=== PATIENT | female | born 1985 | race Caucasian/White ===

== ENCOUNTER 2018-06-28 14:48 | Observation (INO) | payer SELFPAY ==
[2018-06-28 16:01] LABS: BASO # 0.1 K/uL (0.0-0.2); BASO % 0.7 % (0.0-2.0); EOS # 0.2 K/uL (0.0-0.7); EOS % 1.8 % (0.0-4.0); LYMPH # 2.7 K/uL (1.0-4.3); LYMPH % 29.3 % (20.0-40.0); MEAN CELL VOLUME 83.1 fL (81.0-99.0); MEAN CORPUSCULAR HGB CONC 34.9 g/dL (33.0-37.0); MEAN PLATELET VOLUME 10.2 fL (7.2-11.7); MONO # 0.5 K/uL (0.0-0.8); MONO % 5.1 % (0.0-10.0); NEUT # 5.8 K/uL (1.8-7.0); NEUT % 63.1 % (50.0-75.0); NRBC % 0.1 % (0.0-2.0); RBC 4.83 Mil/uL (3.80-5.20); RED CELL DISTRIBUTION WIDTH 14.2 % (11.5-14.5); WHITE BLOOD COUNT 9.2 K/uL (4.8-10.8)
[2018-06-28 16:19] LABS: BLOOD UREA NITROGEN 12 mg/dL (7-17); CALCIUM 9.3 mg/dl (8.6-10.4); GFR NON-AFRICAN AMERICAN > 60
[2018-06-28 16:23] LABS: ALB/GLOB RATIO 1.4 (1.0-2.1); ALBUMIN 4.9 g/dL (3.5-5.0); ALT/SGPT 19 U/L (9-52); AST/SGOT 55 U/L (14-36)
--- NOTE | 2018-06-28 16:31 | RAD ---
PROCEDURE: Right Hand Radiographs. HISTORY: swelling, cellulitis middle finger COMPARISON: None. FINDINGS: BONES: Normal. No fracture. JOINTS: Normal. No osteoarthritic changes. SOFT TISSUES: Soft tissue swelling middle digit. No visulaized radiopaque/visualized foreign body. OTHER FINDINGS: None. IMPRESSION: Soft tissue swelling without acute articular or osseous abnormality.
--- NOTE | 2018-06-28 16:38 | C.PDOC ---
History Of Present Illness 33 year old female presents to the ED for evaluation of a bump over the 3rd digit on her right hand for the last few days. Patient states the bump started small, unsure how or why the bump developed, she began to pick and scratch the bump resulting in the bump to become filled with puss and swollen. Denies fever, nausea, vomiting, numbness, tingling, and any other associated symptoms. <Taty Galdamez - Last Filed: 06/28/18 17:29> History Per: Patient History/Exam Limitations: no limitations Onset/Duration Of Symptoms: Days Current Symptoms Are (Timing): Still Present <Taty Galdamez - Last Filed: 06/28/18 17:29> <Gee Barker - Last Filed: 06/29/18 23:13> Time Seen by Provider: 06/28/18 15:10 Chief Complaint (Nursing): Finger,Hand,&Wrist Past Medical History Vital Signs: Last Vital Signs Temp 98.3 F 06/28/18 14:52 Pulse 77 06/28/18 14:52 Resp 19 06/28/18 14:52 BP 110/77 06/28/18 14:52 Pulse Ox 99 06/28/18 14:52 - Medical History PMH: Arthritis, Asthma (childhood), Back Problems (chronic back pain), Gastritis, Hypercholesterolemia, Migraine, Seizures Denies: Diabetes, Hepatitis, HIV, HTN, Chronic Kidney Disease, Sexually Transmitted Disease Surgical History: Cholecystectomy - [facility] Procedures GROUP PSYCHOTHERAPY (11/21/16) INDIVIDUAL PSYCHOTHERAPY, SUPPORTIVE (11/21/16) MEDICATION MANAGEMENT (11/21/16) OP RED-INT FIX TIB/FIBUL (12/13/14) Family History: States: Unknown Family Hx - Social History Hx Tobacco Use: No Hx Alcohol Use: No Hx Substance Use: No - Immunization History Hx Tetanus Toxoid Vaccination: No Hx Influenza Vaccination: No Hx Pneumococcal Vaccination: No <Taty Galdamez - Last Filed: 06/28/18 17:29> Vital Signs: Last Vital Signs Temp 98.0 F 06/29/18 16:00 Pulse 81 06/29/18 16:00 Resp 20 06/29/18 16:00 BP 113/71 06/29/18 16:00 Pulse Ox 97 06/29/18 19:20 - [facility] Procedures GROUP PSYCHOTHERAPY (11/21/16) INDIVIDUAL PSYCHOTHERAPY, SUPPORTIVE (11/21/16) MEDICATION MANAGEMENT (11/21/16) OP RED-INT FIX TIB/FIBUL (12/13/14) Family History: States: No Known Family Hx <Gee Barker E - Last Filed: 06/29/18 23:13> Review Of Systems Except As Marked, All Systems Reviewed And Found Negative. Constitutional: Negative for: Fever, Chills Gastrointestinal: Negative for: Nausea, Vomiting Musculoskeletal: Positive for: Other (bump over the 3rd digit on the right hand.) Neurological: Negative for: Weakness, Numbness, Incoordination <Taty Galdamez - Last Filed: 06/28/18 17:29> Physical Exam - Physical Exam Appears: Well, Non-toxic Skin: Warm, Dry Head: Normacephalic Eye(s): bilateral: PERRL Oral Mucosa: Moist Chest: Symmetrical, No Deformity Cardiovascular: Rhythm Regular, No Murmur Respiratory: Normal Breath Sounds, No Rales, No Rhonchi, No Wheezing Extremity: Normal ROM (x4), No Deformity, Other (Right hand: Multiple old self- inflicted healed lacerations on the right hand, 3rd right hand scab and swelling, decreased ability to flex, red streaks on dorsal hand due to swelling.) Pulses: Left Radial: Normal, Right Radial: Normal Neurological/Psych: Oriented x3, Normal Speech, Normal Motor, Normal Sensation, Normal Reflexes Gait: Steady <Taty Galdamez - Last Filed: 06/28/18 17:29> ED Course And Treatment - Laboratory Results Result Diagrams: 06/28/18 15:42 06/28/18 15:42 O2 Sat by Pulse Oximetry: 99 (RA) Pulse Ox Interpretation: Normal - Other Rad RT Hand X-ray X-Ray: Viewed By Me, Read By Radiologist Interpretation: FINDINGS: BONES: Normal. No fracture. JOINTS: Normal. No osteoarthritic changes. SOFT TISSUES: Soft tissue swelling middle digit. No visulaized radiopaque/visualized foreign body. OTHER FINDINGS: None. IMPRESSION: Soft tissue swelling without acute articular or osseous abnormality. Progress Note: Blood sent. Blood culture sent. Urinalysis and Urine HCG sent. Sent right hand x-ray. Given Tylenol. 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 - Scribe Statement The provider has reviewed the documentation as recorded by the Scribe (Alda Murphy) All medical record entries made by the Scribe were at my direction and personally dictated by me. I have reviewed the chart and agree that the record accurately reflects my personal performance of the history, physical exam, medical decision making, and the department course for this patient. I have also personally directed, reviewed, and agree with the discharge instructions and disposition. <Taty Galdamez - Last Filed: 06/28/18 17:29>
[2018-06-28] MEDS ORDERED: Piperacillin/Tazobact 3.375 GM in Sodium Chloride 100 ML IVPB STA (16:56)
[2018-06-28] MEDS ORDERED: Piperacillin/Tazobact 3.375 gm 100 ML IVPB ONE (17:05)
[2018-06-28] MEDS ORDERED: Vancomycin 1 GM 1 GM/250 ML BAG IVPB ONE (17:54)
--- NOTE | 2018-06-28 18:27 | CP.PCM.CON ---
History of Present Illness - History of Present Illness History of Present Illness: Plastic Surgery Consult: Plastic Surgery Patient is a 33F with PMHx of epilepsy, asthma, and psoriasis came in presenting with a R 3rd digit cellulitis and abscess. She reports the problem started 4 days ago when a "pimple" looking lesion developed. She developed weakness, swelling, and itchiness. She says any kind of movement makes her hand hurt. She describes it as a constant 10/10 pain that is stabbing and tingling. The pain extends up to the dorsal aspect of her R forearm. Pt tried to pop it yesterday with a needle but it made her pain even worse. She reports a bloody and pus- filled discharge. She denies owning pets, recent trauma, gardening, nor travel. She denies fever/chills, N/V, D/C, chest pain, abdominal pain, and numbness. PMHx: epilepsy, depression, asthma, migraines, psoriasis, chronic arthritis, PCOS, stomach ulcers SxHx: R ankle fracture (2014), cholecystectomy (2013) FamHx: mother has migraines, father has DM and HTN Hospitalizations: many due to her epilepsy (she loses consciousness) Meds: none currently Allergies: none SocHx: Denies tobacco, alcohol, and drug use. Pt is sexually active, does not us e protection, and does not use control. She was out of the country for 1 year in [place]. She returned in December 2017. Review of Systems - Constitutional Constitutional: absent: Chills, Fever - Cardiovascular Cardiovascular: absent: Chest Pain - Gastrointestinal Gastrointestinal: absent: Abdominal Pain, Constipation, Diarrhea, Nausea, Vomiting - Musculoskeletal Musculoskeletal: Tingling Additional comments: Tingling in R C7 dermatome. Past Patient History - Infectious Disease Hx of Infectious Diseases: None - Past Medical History & Family History Past Medical History?: Yes - Past Social History Smoking Status: Never Smoked - CARDIAC Hx Hypercholesterolemia: Yes Hx Hypertension: No - PULMONARY Hx Asthma: Yes (childhood) - NEUROLOGICAL Hx Migraine: Yes Hx Seizures: Yes - HEENT Hx HEENT Problems: No - RENAL Hx Chronic Kidney Disease: No - ENDOCRINE/METABOLIC Hx Endocrine Disorders: No - HEMATOLOGICAL/ONCOLOGICAL Hx Human Immunodeficiency Virus (HIV): No - INTEGUMENTARY Hx Dermatological Problems: Yes Hx Psoriasis: Yes - MUSCULOSKELETAL/RHEUMATOLOGICAL Hx Arthritis: Yes - GASTROINTESTINAL Hx Gastritis: Yes - GENITOURINARY/GYNECOLOGICAL Hx Sexually Transmitted Disorders: No - PSYCHIATRIC Hx Substance Use: No - SURGICAL HISTORY Hx Cholecystectomy: Yes - ANESTHESIA Hx Anesthesia: Yes Hx Anesthesia Reactions: No Meds Allergies/Adverse Reactions: Allergies Allergy/AdvReac Type Severity Reaction Status Date / Time No Known Allergies Allergy Verified 06/28/18 14:56 Physical Exam - Head Exam Head Exam: ATRAUMATIC, NORMOCEPHALIC - Eye Exam Eye Exam: Normal appearance. absent: Scleral icterus - ENT Exam ENT Exam: Mucous Membranes Moist - Respiratory Exam Respiratory Exam: absent: Accessory Muscle Use, Respiratory Distress - Cardiovascular Exam Cardiovascular Exam: REGULAR RHYTHM. absent: Tachycardia - GI/Abdominal Exam GI & Abdominal Exam: absent: Tenderness - Extremities Exam Extremities exam: Positive for: tenderness Additional comments: 0.5x1 area of induration between 3rd digit PIP and DIP. minimal fluctuance. surrounding erythema extending to the wrist neurologically intact, decreased ROM 2/2 swelling - Expanded Upper Extremities Exam Right Forearm Wrist exam: abrasion (Scarring on B/L dorsal aspect of distal forearms), tenderness. absent: full ROM (Decreased R wrist flexion) Neuro motor exam: absent: finger 2-5 abduction intact (4/5 in R finger abduction) - Neurological Exam Neurological exam: Motor Sensory Deficit, Oriented x3 Additional comments: Pt described decreased sensation on the R C7 dermatome. - Psychiatric Exam Psychiatric exam: Normal Affect - Skin Skin Exam: Erythema, Urticaria, Warm Additional comments: Pt complains of itchy and painful R 3rd digit extending up to her R forearm. Results - Vital Signs Recent Vital Signs: Last Vital Signs Temp 98.3 F 06/28/18 14:52 Pulse 77 06/28/18 14:52 Resp 19 06/28/18 14:52 BP 110/77 06/28/18 14:52 Pulse Ox 99 06/28/18 17:30 - Labs Result Diagrams: 06/28/18 15:42 06/28/18 15:42 Labs: Laboratory Results - last 24 hr 06/28/18 06/28/18 06/28/18 15:42 15:42 15:42 WBC 9.2 RBC 4.83 Hgb 14.0 D Hct 40.1 MCV 83.1 D MCH 29.0 MCHC 34.9 RDW 14.2 Plt Count 212 MPV 10.2 Neut % (Auto) 63.1 Lymph % (Auto) 29.3 [place] % (Auto) 5.1 Eos % (Auto) 1.8 Baso % (Auto) 0.7 Neut # (Auto) 5.8 Lymph # (Auto) 2.7 [place] # (Auto) 0.5 Eos # (Auto) 0.2 Baso # (Auto) 0.1 Sodium 138 Potassium 5.5 H Chloride 102 Carbon Dioxide 19 L Anion Gap 22 H BUN 12 Creatinine 0.6 L Est GFR ( Amer) > 60 Est GFR (Non-Af Amer) > 60 Random Glucose 110 H Calcium 9.3 Total Bilirubin 1.3 AST 55 H ALT 19 Alkaline Phosphatase 70 Total Protein 8.5 H Albumin 4.9 Globulin 3.6 Albumin/Globulin Ratio 1.4 Urine HCG, Qual Negative Assessment & Plan - Assessment and Plan (Free Text) Assessment: 33F with right hand cellulitis Plan: admit for IV abx no immediately drainable collection warm soaks either soap water or betadyne Q2H will reassess need for I&D tomorrow - may spontaneously drain with help of soaks d/w Dr Nickolas Castellano, PGY4
--- NOTE | 2018-06-28 19:23 | CP.PCM.HP ---
<Lennie Siddiqui - Last Filed: 06/29/18 03:41> History of Present Illness - History of Present Illness History of Present Illness: History and Physical - Hospitalist Service CC: Right Hand Swelling HPI: Patient is a 33 year old [place] female with past medical history of Epilepsy, Depression, Arthritis, Asthma, Psoriasis who presented the emergency department for worsening right hand pain and swelling. Patient states that she noticed a small pimple on the third digit of her right hand that was itchy. It became swollen and increasing painful. She states that she noticed some puss building up around it so she used a needle to pop the pimple last night. States that there was bloody and pus-filled discharge at that time. Since then she has been experiencing increasing pain and swelling which prompted the visit. She states that pain radiates up her arm to under the armpit. She also admits to right arm numbness and tingling. She states that she took three doses of Amoxicillin, twice yesterday and once today with no improvement in symptoms. She denies any trauma, fevers, chills, headaches, dizziness, chest pain, palpitations, sob, abdominal pain, urinary symptoms, changes in bowel habits. Last seizure was 6 months ago. ED course: Tylenol 975mg, Zosyn 3.375mg IVPB, Vanco 1gm IVPB Allergies: NKDA Medications: Denies Medical History: Epilepsy, Depression, Arthritis, Asthma, Psoriasis, Migraine Surgical History: Right ankle surgery, cholecystectomy Social History: Denies alcohol, tobacco, drug use; not employed Family History: Mother - Migraine, arthritis; Father - DM, HTN Present on Admission - Present on Admission Any Indicators Present on Admission: No Past Patient History - Infectious Disease Hx of Infectious Diseases: None - Past Medical History & Family History Past Medical History?: Yes - Past Social History Smoking Status: Never Smoked - CARDIAC Hx Hypercholesterolemia: Yes Hx Hypertension: No - PULMONARY Hx Asthma: Yes (childhood) - NEUROLOGICAL Hx Migraine: Yes Hx Seizures: Yes - HEENT Hx HEENT Problems: No - RENAL Hx Chronic Kidney Disease: No - ENDOCRINE/METABOLIC Hx Endocrine Disorders: No - HEMATOLOGICAL/ONCOLOGICAL Hx Human Immunodeficiency Virus (HIV): No - INTEGUMENTARY Hx Dermatological Problems: Yes Hx Psoriasis: Yes - MUSCULOSKELETAL/RHEUMATOLOGICAL Hx Arthritis: Yes - GASTROINTESTINAL Hx Gastritis: Yes - GENITOURINARY/GYNECOLOGICAL Hx Sexually Transmitted Disorders: No - PSYCHIATRIC Hx Substance Use: No - SURGICAL HISTORY Hx Cholecystectomy: Yes - ANESTHESIA Hx Anesthesia: Yes Hx Anesthesia Reactions: No Meds Allergies/Adverse Reactions: Allergies Allergy/AdvReac Type Severity Reaction Status Date / Time No Known Allergies Allergy Verified 06/28/18 14:56 Physical Exam - Constitutional Appears: Well, No Acute Distress - Head Exam Head Exam: ATRAUMATIC, NORMAL INSPECTION, NORMOCEPHALIC - Eye Exam Eye Exam: EOMI, Normal appearance Pupil Exam: NORMAL ACCOMODATION - ENT Exam ENT Exam: Mucous Membranes Moist - Neck Exam Neck exam: Positive for: Full Rom - Respiratory Exam Respiratory Exam: Clear to Auscultation Bilateral, NORMAL BREATHING PATTERN. absent: Rales, Rhonchi, Wheezes - Cardiovascular Exam Cardiovascular Exam: REGULAR RHYTHM, +S1, +S2 - GI/Abdominal Exam GI & Abdominal Exam: Normal Bowel Sounds, Soft. absent: Guarding, Rebound, Rigid, Tenderness - Extremities Exam Additional comments: Left upper extremity: multiple linear scars on forearm, intact radial pulses Right upper extremity: multiple linear scars on forearm, third digit small ulceration between DIP and PIP, +swelling and erythema noted, intact radial pulses, decreased ROM due to pain and swelling; area marked with pen - Neurological Exam Neurological exam: Alert, Oriented x3 - Psychiatric Exam Psychiatric exam: Normal Affect, Normal Mood - Skin Skin Exam: Dry, Normal Color, Warm Results - Vital Signs Recent Vital Signs: Last Vital Signs Temp 98.3 F 06/28/18 14:52 Pulse 77 06/28/18 14:52 Resp 19 06/28/18 14:52 BP 110/77 06/28/18 14:52 Pulse Ox 99 06/28/18 17:30 - Labs Result Diagrams: 06/28/18 15:42 06/28/18 15:42 Labs: Laboratory Results - last 24 hr 06/28/18 06/28/18 06/28/18 15:42 15:42 15:42 WBC 9.2 RBC 4.83 Hgb 14.0 D Hct 40.1 MCV 83.1 D MCH 29.0 MCHC 34.9 RDW 14.2 Plt Count 212 MPV 10.2 Neut % (Auto) 63.1 Lymph % (Auto) 29.3 [place] % (Auto) 5.1 Eos % (Auto) 1.8 Baso % (Auto) 0.7 Neut # (Auto) 5.8 Lymph # (Auto) 2.7 [place] # (Auto) 0.5 Eos # (Auto) 0.2 Baso # (Auto) 0.1 Sodium 138 Potassium 5.5 H Chloride 102 Carbon Dioxide 19 L Anion Gap 22 H BUN 12 Creatinine 0.6 L Est GFR ( Amer) > 60 Est GFR (Non-Af Amer) > 60 Random Glucose 110 H Calcium 9.3 Total Bilirubin 1.3 AST 55 H ALT 19 Alkaline Phosphatase 70 Total Protein 8.5 H Albumin 4.9 Globulin 3.6 Albumin/Globulin Ratio 1.4 Urine HCG, Qual Negative Assessment & Plan - Assessment and Plan (Free Text) Assessment: A/P: Patient is a 33 year old [place] female with past medical history of Epilepsy, Depression, Arthritis, Asthma, Psoriasis who presented the emergency department for worsening right hand pain and swelling. Right 3rd Digit Cellulitis/Abscess -Stable, afebrile -Admit to Med/Surg -Antibiotics: Clindamycin 600mg Q6H IVPB -Toradol 30mg Q6H prn pain -Plastic surgery on consult, Dr Martinez, f/u recommendations Hyperkalemia -Potassium 5.5 on admission -F/U am CMP GI/DVT ppx: -Protonix 40mg PO daily -SCDs Plan discussed with Dr Hannah Siddiqui DO PGY-2 <Thomas Young P - Last Filed: 06/29/18 06:49> Results - Vital Signs Recent Vital Signs: Last Vital Signs Temp 97.8 F 06/29/18 05:30 Pulse 69 06/29/18 05:30 Resp 20 06/29/18 05:30 BP 98/62 L 06/29/18 05:30 Pulse Ox 97 06/29/18 05:30 - Labs Result Diagrams: 06/28/18 15:42 06/28/18 15:42 Labs: Laboratory Results - last 24 hr 06/28/18 06/28/18 06/28/18 15:42 15:42 15:42 WBC 9.2 RBC 4.83 Hgb 14.0 D Hct 40.1 MCV 83.1 D MCH 29.0 MCHC 34.9 RDW 14.2 Plt Count 212 MPV 10.2 Neut % (Auto) 63.1 Lymph % (Auto) 29.3 [place] % (Auto) 5.1 Eos % (Auto) 1.8 Baso % (Auto) 0.7 Neut # (Auto) 5.8 Lymph # (Auto) 2.7 [place] # (Auto) 0.5 Eos # (Auto) 0.2 Baso # (Auto) 0.1 Sodium 138 Potassium 5.5 H Chloride 102 Carbon Dioxide 19 L Anion Gap 22 H BUN 12 Creatinine 0.6 L Est GFR ( Amer) > 60 Est GFR (Non-Af Amer) > 60 Random Glucose 110 H Calcium 9.3 Total Bilirubin 1.3 AST 55 H ALT 19 Alkaline Phosphatase 70 Total Protein 8.5 H Albumin 4.9 Globulin 3.6 Albumin/Globulin Ratio 1.4 Urine HCG, Qual Negative Attending/Attestation - Attestation I have personally seen and examined this patient.: Yes I have fully participated in the care of the patient.: Yes I have reviewed all pertinent clinical information: Yes Notes (Text): 06/29/18 06:44 Right 3rd digit, abscess and cellulitis on the dorsum of middle phalange with inflammation extending to the dorsum of the hand, trochlear and axillary lymphnodes. H/o psychosis and self infliction of the wounds, resulting scaring in both fore arms H/o seizures H/o migraine headache Patient stooped all her medications starting this year as she has been feeling fine, has not followed up with pmd. Plan IV clinda warm compresses Elevate arm pain control with prn toradol 15mg q6 Counselled about f/u with pmd and psychiatrist out patient Hand surgery assessing patient simultaneously if need I&D. See orders for detail.
[2018-06-28] MEDS ORDERED: Apap-Butalbital-Caffeine 325-50-40mg Tab PO STA (21:38)
[2018-06-28] MEDS: Clindamycin 600mg/50ml NS 600 MG/50 ML BAG IVPB SCH (22:34)
[2018-06-29 00:05] VITALS: RESP 20
[2018-06-29] MEDS: Clindamycin 600mg/50ml NS 600 MG/50 ML BAG IVPB SCH ×4 (03:30→21:43)
[2018-06-29 08:03] LABS: BASO % 0.7 % (0.0-2.0); EOS # 0.2 K/uL (0.0-0.7); EOS % 3.8 % (0.0-4.0); HEMOGLOBIN 13.1 g/dL (11.0-16.0); LYMPH # 2.4 K/uL (1.0-4.3); MEAN CELL VOLUME 82.6 fL (81.0-99.0); MEAN CORPUSCULAR HEMOGLOBIN 29.1 pg (27.0-31.0); MEAN CORPUSCULAR HGB CONC 35.2 g/dL (33.0-37.0); MEAN PLATELET VOLUME 10.2 fL (7.2-11.7); MONO # 0.3 K/uL (0.0-0.8); MONO % 5.4 % (0.0-10.0); NEUT # 3.3 K/uL (1.8-7.0); NEUT % 52.1 % (50.0-75.0); RBC 4.52 Mil/uL (3.80-5.20); RED CELL DISTRIBUTION WIDTH 14.1 % (11.5-14.5); WHITE BLOOD COUNT 6.2 K/uL (4.8-10.8)
[2018-06-29 08:26] LABS: ALB/GLOB RATIO 1.4 (1.0-2.1); ALT/SGPT 32 U/L (9-52); AST/SGOT 14 U/L (14-36); BLOOD UREA NITROGEN 13 mg/dL (7-17); CALCIUM 8.9 mg/dl (8.6-10.4); GFR NON-AFRICAN AMERICAN > 60
--- NOTE | 2018-06-29 09:52 | CP.PCM.PN ---
Subjective - Date & Time of Evaluation Date of Evaluation: 06/29/18 Time of Evaluation: 09:49 - Subjective Subjective: Surgery Pt seen and examined. Reports pain and swelling improved. Denies fever, nausea, diarrhea. Objective - Vital Signs/Intake and Output Vital Signs (last 24 hours): Temp Pulse Resp BP Pulse Ox 97.3 F L 70 20 105/72 97 06/29/18 08:00 06/29/18 08:00 06/29/18 08:00 06/29/18 08:00 06/29/18 08:00 Intake and Output: 06/29/18 06/29/18 06:59 18:59 Intake Total 375 Balance 375 - Medications Medications: Current Medications Heparin Sodium (Porcine) (Heparin) 5,000 units SC Q12 [facility] Clindamycin Phosphate (Cleocin 600mg/50ml Ns) 600 mg in 50 mls @ 100 mls/hr IVPB Q6H [facility]; Protocol Last Admin: 06/29/18 03:30 Dose: 100 mls/hr Ketorolac Tromethamine (Toradol) 15 mg IVP Q6 PRN PRN Reason: Pain, severe (8-10) Last Admin: 06/29/18 08:27 Dose: 15 mg Pantoprazole Sodium (Protonix Ec Tab) 40 mg PO DAILY [facility] Pneumococcal Polyvalent Vaccine (Pneumovax 23 Vaccine) 0.5 ml IM .ONCE ONE Stop: 06/30/18 10:01 - Labs Labs: 06/29/18 07:40 06/29/18 07:40 - Constitutional Appears: No Acute Distress - Head Exam Head Exam: ATRAUMATIC, NORMAL INSPECTION, NORMOCEPHALIC - Eye Exam Eye Exam: EOMI, Normal appearance, PERRL Pupil Exam: NORMAL ACCOMODATION, PERRL - ENT Exam ENT Exam: Mucous Membranes Moist, Normal Exam - Neck Exam Neck Exam: Full ROM, Normal Inspection. absent: Lymphadenopathy - Respiratory Exam Respiratory Exam: NORMAL BREATHING PATTERN - Cardiovascular Exam Cardiovascular Exam: REGULAR RHYTHM, +S1, +S2. absent: Murmur - GI/Abdominal Exam GI & Abdominal Exam: Soft. absent: Distended, Tenderness - Extremities Exam Extremities Exam: Tenderness. absent: Full ROM, Normal Inspection Additional comments: R middle finger middle phalanx dorasum 1cm eryhtema, punctate in the center. Non draining. indurated. - Back Exam Back Exam: NORMAL INSPECTION - Neurological Exam Neurological Exam: Alert, Awake, CN II-XII Intact, Normal Gait, Oriented x3 - Psychiatric Exam Psychiatric exam: Normal Affect, Normal Mood - Skin Skin Exam: Dry, Erythema, Intact, Warm. absent: Normal Color Assessment and Plan - Assessment and Plan (Free Text) Assessment: 33F with right hand cellulitis Plan: IV abx no immediately drainable collection warm soaks either soap water or betadyne Q2H d/w Dr Olmos
[2018-06-29] MEDS: Pantoprazole 40 mg EC Tab PO SCH (10:55)
--- NOTE | 2018-06-29 11:47 | CP.PCM.PN ---
Subjective - Date & Time of Evaluation Date of Evaluation: 06/29/18 Time of Evaluation: 10:00 - Subjective Subjective: PGY-[address] Kaur Patient is seen and examined at bedside. Patient states she is able to move her right hand and fingers more than before. Patient says her pain has improved in both the finger and arm, as well as armpit. Notices to be less swollen. Patient at times feels a shooting pain in the finger. Patient denies fevers, chills, chest pain, shortness of breath, abdominal pain, nausea, vomiting, diarrhea or constipation. Patient is tolerating diet and out of bed. Objective - Vital Signs/Intake and Output Vital Signs (last 24 hours): Temp Pulse Resp BP Pulse Ox 97.3 F L 70 20 105/72 97 06/29/18 08:00 06/29/18 08:00 06/29/18 08:00 06/29/18 08:00 06/29/18 08:00 Intake and Output: 06/29/18 06/29/18 06:59 18:59 Intake Total 375 Balance 375 - Medications Medications: Current Medications Heparin Sodium (Porcine) (Heparin) 5,000 units SC Q12 [facility] Last Admin: 06/29/18 10:55 Dose: 5,000 units Clindamycin Phosphate (Cleocin 600mg/50ml Ns) 600 mg in 50 mls @ 100 mls/hr IVPB Q6H [facility]; Protocol Last Admin: 06/29/18 10:55 Dose: 100 mls/hr Influenza Virus Vaccine (Fluzone Quad [id number]) 60 mcg IM .ONCE ONE Stop: 06/30/18 10:01 Ketorolac Tromethamine (Toradol) 15 mg IVP Q6 PRN PRN Reason: Pain, severe (8-10) Last Admin: 06/29/18 08:27 Dose: 15 mg Pantoprazole Sodium (Protonix Ec Tab) 40 mg PO DAILY [facility] Last Admin: 06/29/18 10:55 Dose: 40 mg Pneumococcal Polyvalent Vaccine (Pneumovax 23 Vaccine) 0.5 ml IM .ONCE ONE Stop: 06/30/18 10:01 - Labs Labs: 06/29/18 07:40 06/29/18 07:40 - Constitutional Appears: Non-toxic, No Acute Distress - Head Exam Head Exam: ATRAUMATIC, NORMAL INSPECTION, NORMOCEPHALIC - Eye Exam Eye Exam: EOMI, Normal appearance - ENT Exam ENT Exam: Mucous Membranes Moist, Normal Exam - Neck Exam Neck Exam: Full ROM, Normal Inspection - Respiratory Exam Respiratory Exam: Clear to Ausculation Bilateral, NORMAL BREATHING PATTERN - Cardiovascular Exam Cardiovascular Exam: REGULAR RHYTHM, +S1, +S2 - GI/Abdominal Exam GI & Abdominal Exam: Soft, Normal Bowel Sounds. absent: Tenderness - Extremities Exam Extremities Exam: Full ROM Additional comments: R dorsal side, middle finger phalanx 1cm eryhtema, punctate in the center. Non draining. indurated. nontender to palpation - Back Exam Back Exam: NORMAL INSPECTION - Neurological Exam Neurological Exam: Alert, Awake, Oriented x3 - Psychiatric Exam Psychiatric exam: Normal Affect, Normal Mood - Skin Skin Exam: Dry, Intact, Normal Color, Warm Assessment and Plan - Assessment and Plan (Free Text) Plan: Right 3rd Digit Cellulitis/Abscess -Stable, afebrile -Antibiotics: Clindamycin 600mg Q6H IVPB -Vanco 1gm IVPB Q12 - Blood cultures - no growth after 24 hours -Toradol 30mg Q6H prn pain (severe) -tylenol 650mg Q6hrs prn pain (moderate) -Plastic surgery on consult, Dr Olmos- IV abx, no immediately drainable collection, warm soaks either soap water or betadyne Q2H - will continue to follow up recs from Dr Olmos and surg team Hyperkalemia, resolved -Potassium 5.5 on admission -potassium 4.1 -continue to follow potassium, am labs GI/DVT ppx: -Protonix 40mg PO daily -SCDs Plan discussed with Dr Natasha Boone , PGY01
--- NOTE | 2018-06-29 20:23 | CP.PCM.PCO ---
Physician Communication Note - Physician Communication Note Physician Communication Note: Patient with right long finger cellulitis. Assessment/Plan (1) Cellulitis of right middle finger Assessment and plan: Right long finger erythema decreased to 3 mm around a central eschar. There is some swelling and tenderness but no fluctulence notes. There is no further streaking along the forearm. Cellulitis to the hand is resolving. There is some stiffness to the PIP and DIP joints but good motion at the MCP jont. Current Visit: Yes Status: Acute - Assessment and Plan (Free Text) Assessment: Right long finger cellulitis resolving. Plan: Continue with soaks. Patient is doing self soaks every 2-3 hrs. Added Medihoney over exchar between soaks. Patient shown how to apply and change the dressings. Continue with IV Antibiotics. Anticipate she should be able to go home by tomorrow on oral antibiotics if the cellulitis resolves.
[2018-06-30] MEDS: Clindamycin 600mg/50ml NS 600 MG/50 ML BAG IVPB SCH ×2 (03:30→10:19)
[2018-06-30] MEDS ORDERED: Apap-Butalbital-Caffeine 325-50-40mg Tab PO PRN ×2 (08:18→08:20)
[2018-06-30 08:25] LABS: BASO % 0.7 % (0.0-2.0); EOS # 0.2 K/uL (0.0-0.7); EOS % 4.2 % (0.0-4.0); HEMOGLOBIN 13.3 g/dL (11.0-16.0); LYMPH % 41.3 % (20.0-40.0); MEAN CELL VOLUME 83.7 fL (81.0-99.0); MEAN CORPUSCULAR HEMOGLOBIN 29.2 pg (27.0-31.0); MEAN CORPUSCULAR HGB CONC 34.9 g/dL (33.0-37.0); MEAN PLATELET VOLUME 9.9 fL (7.2-11.7); MONO # 0.3 K/uL (0.0-0.8); NEUT # 2.4 K/uL (1.8-7.0); NEUT % 47.8 % (50.0-75.0); NRBC % 0.2 % (0.0-2.0); RBC 4.56 Mil/uL (3.80-5.20); RED CELL DISTRIBUTION WIDTH 14.2 % (11.5-14.5); WHITE BLOOD COUNT 4.9 K/uL (4.8-10.8)
[2018-06-30 08:45] LABS: ALB/GLOB RATIO 1.4 (1.0-2.1); ALT/SGPT 23 U/L (9-52); AST/SGOT 12 U/L (14-36); BLOOD UREA NITROGEN 12 mg/dL (7-17); CALCIUM 8.5 mg/dl (8.6-10.4); GFR NON-AFRICAN AMERICAN > 60
[2018-06-30] MEDS ORDERED: Influenza Vaccine 60 MCG/0.5 ML SYR (3 yr & up) IM ONE ×2 (10:00→16:45)
[2018-06-30] MEDS ORDERED: Pneumococcal 23-Valent Vaccine IM ONE ×2 (10:00→16:45)
[2018-06-30] MEDS: Pantoprazole 40 mg EC Tab PO SCH (10:17)
--- NOTE | 2018-06-30 10:17 | CP.PCM.PN ---
Subjective - Date & Time of Evaluation Date of Evaluation: 06/30/18 Time of Evaluation: 07:25 - Subjective Subjective: Plastic Surgery Pt seen and examined. No issues overnight. Pain improving, still with limited motion due to pain/and some small amount of edema in the finger. No new complaints. Objective - Vital Signs/Intake and Output Vital Signs (last 24 hours): Temp Pulse Resp BP Pulse Ox 98 F 71 20 101/66 99 06/30/18 07:55 06/30/18 07:55 06/30/18 07:55 06/30/18 07:55 06/30/18 07:55 Intake and Output: 06/30/18 06/30/18 06:59 18:59 Intake Total 565 Balance 565 - Medications Medications: Current Medications Acetaminophen/Butalbital/Caffeine (Fioricet) 1 tab PO Q6 PRN PRN Reason: Pain, moderate (4-7) Last Admin: 06/30/18 08:47 Dose: 1 tab Heparin Sodium (Porcine) (Heparin) 5,000 units SC Q12 BLAIRE Last Admin: 06/29/18 21:42 Dose: 5,000 units Clindamycin Phosphate (Cleocin 600mg/50ml Ns) 600 mg in 50 mls @ 100 mls/hr IVPB Q6H BLAIRE; Protocol Last Admin: 06/30/18 03:30 Dose: 100 mls/hr Vancomycin HCl 1,000 mg/ (Sodium Chloride) 250 mls @ 166.6 mls/hr IVPB Q12H BLAIRE; Protocol Last Admin: 06/30/18 04:30 Dose: 166.6 mls/hr Ketorolac Tromethamine (Toradol) 15 mg IVP Q6 PRN PRN Reason: Pain, severe (8-10) Last Admin: 06/30/18 03:45 Dose: 15 mg Pantoprazole Sodium (Protonix Ec Tab) 40 mg PO DAILY BLAIRE Last Admin: 06/29/18 10:55 Dose: 40 mg - Labs Labs: 06/30/18 08:17 06/30/18 08:17 - Constitutional Appears: Non-toxic, No Acute Distress - Head Exam Head Exam: ATRAUMATIC, NORMOCEPHALIC - Eye Exam Eye Exam: EOMI. absent: Scleral icterus - Respiratory Exam Respiratory Exam: NORMAL BREATHING PATTERN. absent: Respiratory Distress - Cardiovascular Exam Cardiovascular Exam: RRR, +S1 - GI/Abdominal Exam GI & Abdominal Exam: Soft. absent: Distended, Tenderness - Back Exam Additional comments: R middle finger, middle phalanx dorsum, with decreasing eryhtema, scab in center with softening of the border. Non draining. Mildly indurated. - Neurological Exam Neurological Exam: Alert, Awake, Oriented x3 - Skin Skin Exam: Dry, Warm Assessment and Plan - Assessment and Plan (Free Text) Assessment: 33F with right third finger cellulitis/small abscess Plan: IV abx warm soaks either soap water or betadyne Q2H Cover with medihoney and dressing when not doing soaks. May need unroofing later today D/W Dr Nickolas Mendes PGY4
[2018-06-30 16:37] VITALS: BP 125/91; PULSE 77; TEMP 98.9; O2SAT 98
--- NOTE | 2018-06-30 18:25 | CP.PCM.DIS ---
Provider - Provider Date of Admission: 06/28/18 17:15 Attending physician: Cornelius Kaur MD Time Spent in preparation of Discharge (in minutes): 180 Diagnosis - Discharge Diagnosis (1) Cellulitis of right middle finger Status: Acute Hospital Course - Lab Results Lab Results: Micro Results 06/28/18 15:16 Blood Blood Culture - Preliminary NO GROWTH AFTER 48 HOURS Most Recent Lab Values WBC 4.9 K/uL (4.8-10.8) 06/30/18 08:17 RBC 4.56 Mil/uL (3.80-5.20) 06/30/18 08:17 Hgb 13.3 g/dL (11.0-16.0) 06/30/18 08:17 Hct 38.1 % (34.0-47.0) 06/30/18 08:17 MCV 83.7 fL (81.0-99.0) 06/30/18 08:17 MCH 29.2 pg (27.0-31.0) 06/30/18 08:17 MCHC 34.9 g/dL (33.0-37.0) 06/30/18 08:17 RDW 14.2 % (11.5-14.5) 06/30/18 08:17 Plt Count 189 K/uL (130-400) 06/30/18 08:17 MPV 9.9 fL (7.2-11.7) 06/30/18 08:17 Neut % (Auto) 47.8 % (50.0-75.0) L 06/30/18 08:17 Lymph % (Auto) 41.3 % (20.0-40.0) H 06/30/18 08:17 [place] % (Auto) 6.0 % (0.0-10.0) 06/30/18 08:17 Eos % (Auto) 4.2 % (0.0-4.0) H 06/30/18 08:17 Baso % (Auto) 0.7 % (0.0-2.0) 06/30/18 08:17 Neut # (Auto) 2.4 K/uL (1.8-7.0) 06/30/18 08:17 Lymph # (Auto) 2.0 K/uL (1.0-4.3) 10/06/18 08:17 [place] # (Auto) 0.3 K/uL (0.0-0.8) 06/30/18 08:17 Eos # (Auto) 0.2 K/uL (0.0-0.7) 06/30/18 08:17 Baso # (Auto) 0.0 K/uL (0.0-0.2) 06/30/18 08:17 Sodium 140 mmol/L (132-148) 06/30/18 08:17 Potassium 4.5 mmol/L (3.6-5.2) 06/30/18 08:17 Chloride 108 mmol/L (98-107) H 06/30/18 08:17 Carbon Dioxide 22 mmol/L (22-30) 06/30/18 08:17 Anion Gap 16 (10-20) 06/30/18 08:17 BUN 12 mg/dL (7-17) 06/30/18 08:17 Creatinine 0.7 mg/dL (0.7-1.2) 06/30/18 08:17 Est GFR ( Amer) > 60 06/30/18 08:17 Est GFR (Non-Af Amer) > 60 06/30/18 08:17 Random Glucose 116 mg/dL (65-105) H 06/30/18 08:17 Calcium 8.5 mg/dl (8.6-10.4) L 06/30/18 08:17 Total Bilirubin 0.2 mg/dL (0.2-1.3) 06/30/18 08:17 AST 12 U/L (14-36) L 06/30/18 08:17 ALT 23 U/L (9-52) 06/30/18 08:17 Alkaline Phosphatase 66 U/L (38-126) 06/30/18 08:17 Total Protein 6.7 g/dL (6.3-8.3) 06/30/18 08:17 Albumin 4.0 g/dL (3.5-5.0) 06/30/18 08:17 Globulin 2.7 gm/dL (2.2-3.9) 06/30/18 08:17 Albumin/Globulin Ratio 1.4 (1.0-2.1) 06/30/18 08:17 Urine HCG, Qual Negative (NEGATIVE) 06/28/18 15:42 - Hospital Course Hospital Course: On admission: Patient is a 33 year old female with past medical history of Epilepsy, Depression, Arthritis, Asthma, Psoriasis who presented the emergency department for worsening right hand pain and swelling. Patient states that she noticed a small pimple on the third digit of her right hand that was itchy. It became swollen and increasing painful. She states that she noticed some puss building up around it so she used a needle to pop the pimple last night. States that there was bloody and pus-filled discharge at that time. Since then she has been experiencing increasing pain and swelling which prompted the visit. She states that pain radiates up her arm to under the armpit. She also admits to right arm numbness and tingling. She states that she took three doses of Amoxicillin, twice yesterday and once today with no improvement in symptoms. She denies any trauma, fevers, chills, headaches, dizziness, chest pain, palpitations, sob, abdominal pain, urinary symptoms, changes in bowel habits. Last seizure was 6 months ago. On hospitalization: Patient was admitted for right 3rd digit cellulitis/abscess. Patient was stable and afebrile at time of admission, the following antibiotis were given in ER: Zosyn 3.375mg IVPB, Vanco 1gm IVPB. Tylenol 975mg for pain. Patient was given the following course of abx: Clindamycin 600mg Q6H IVPB and for pain managment: Toradol 30mg Q6H prn pain (severe) and tylenol 650mg Q6hrs prn pain (moderate). Plastic surgery on consult, Dr Olmos- IV abx, no immediately drainable collection, warm soaks either soap water or betadyne Q2H. Blood cultures show no growth after 48 hours. Patient pain improved during hospital course. On discharge: Patient was given the following instruction at discharge: Patient is to follow up with primary medical doctor in one to two weeks, or earlier if symptoms not improving. Patient is to take the following antibiotic: Clindamycin 300mg per mouth three times a day for 7 days and Lactobacilus acidophilus (probiotic) 1 c ap twice a day for 10 days. Patient is to continue taking all her home meds. We are providing a prescription for home med Protonix 40mg per mouth once a day, 30 tablets (one month supply). Continue self soaks every 2-3 hrs. Added Medihoney over exchar between soaks. If symptoms worsen or recur please return to the ER This is a brief summary of patient's hospital course. For more information, ple ase see patient's EMR. - Date & Time of H&P Date of H&P: 06/28/18 Time of H&P: 19:20 Discharge Exam - Head Exam Head Exam: ATRAUMATIC, NORMOCEPHALIC - Eye Exam Eye Exam: EOMI, Normal appearance - ENT Exam ENT Exam: Normal Exam - Neck Exam Neck exam: Full Rom, Normal Inspection - Respiratory Exam Respiratory Exam: Clear to PA & Lateral, NORMAL BREATHING PATTERN, UNREMARKABLE - Cardiovascular Exam Cardiovascular Exam: REGULAR RHYTHM, +S1, +S2 - GI/Abdominal Exam GI & Abdominal Exam: Normal Bowel Sounds, Unremarkable - Extremities Exam Extremities exam: full ROM - Neurological Exam Neurological exam: Alert, Normal Gait, Oriented x3 - Psychiatric Exam Psychiatric exam: Normal Affect, Normal Mood - Skin Skin Exam: Dry, Normal Color, Warm Additional comments: R middle finger, middle phalanx dorsum, with decreasing eryhtema, scab in center with softening of the border. Non draining. non tender to palpation Discharge Plan - Discharge Medications Prescriptions: Clindamycin [Cleocin] 300 mg PO TID 7 Days #21 cap Lactobacillus Acidophilus [Acidophilus Lactobacilli] 1 each PO BID 10 Days #20 capsule Pantoprazole [Protonix EC Tab] 40 mg PO DAILY 30 Days #30 ect - Follow Up Plan Condition: GOOD Disposition: HOME/ ROUTINE Instructions: Clindamycin (Systemic), Cellulitis (Skin Infection), Adult (DC), Pantoprazole, Cellulitis (DC) Additional Instructions: Patient is to follow up with primary medical doctor in one to two weeks, or earlier if symptoms not improving Patient is to take the following antibiotic: Clindamycin 300mg per mouth three times a day for 7 days and Lactobacilus acidophilus (probiotic) 1 cap twice a day for 10 days Patient is to continue taking all her home meds. We are providing a prescription for home med Protonix 40mg per mouth once a day, 30 tablets (one month supply) continue self soaks every 2-3 hrs. Added Medihoney over exchar between soaks. If symptoms worsen or recur please return to the ER Referrals: Cornelius Kaur MD [Staff Provider] -
== END 2018-06-30 17:13 | disposition home or self-care (01) ==
LOC: C.ER 14:48 → C.9E 17:15 → C.3T 19:45
PROVIDERS: ADMIT Internal Medicine; ATTEND Internal Medicine
DX: L03.011 Cellulitis of right finger (principal); L03.113 Cellulitis of right upper limb; E78.00 Pure hypercholesterolemia, unspecified; G40.909 Epilepsy, unspecified, not intractable, without status epilepticus; J45.909 Unspecified asthma, uncomplicated; Z90.49 Acquired absence of other specified parts of digestive tract; Z87.11 Personal history of peptic ulcer disease
CPT/HCPCS: 36415; 73130; 80053; 84703; 85025; 87040; 90674; 90732; 96365; 96366; 96367; 96372; 96375; 96376; 99284; G0008; G0009; G0378; J1644; J1885; J2543; J3370; J7050

== ENCOUNTER 2018-10-13 14:46 | Emergency (ER) | payer SELFPAY ==
[2018-10-13 15:09] VITALS: BP 107/71; PULSE 88; TEMP 97.8; O2SAT 100
--- NOTE | 2018-10-13 15:25 | C.PDOC ---
History Of Present Illness 33 y/o female comes in to ED for sinus congestion, headache, and mild cough x5 days. Patient states she had one episode of vomiting yesterday. Otherwise she denies fever, chills, SOB, chest pain, or other symptoms. She does report that her children are sick at home with similar symptoms. Time Seen by Provider: 10/13/18 15:10 Chief Complaint (Nursing): Cough, Cold, Congestion History Per: Patient History/Exam Limitations: no limitations Onset/Duration Of Symptoms: Days Current Symptoms Are (Timing): Still Present Past Medical History Reviewed: Historical Data, Nursing Documentation, Vital Signs Vital Signs: Last Vital Signs Temp 97.8 F 10/13/18 14:59 Pulse 88 10/13/18 14:59 Resp 16 10/13/18 14:59 BP 107/71 10/13/18 14:59 Pulse Ox 100 10/13/18 14:59 - Medical History PMH: Arthritis, Asthma (childhood), Back Problems (chronic back pain), Gastritis, Hypercholesterolemia, Migraine, Seizures Denies: Diabetes, Hepatitis, HIV, HTN, Chronic Kidney Disease, Sexually Transmitted Disease Surgical History: Cholecystectomy - [facility] Procedures GROUP PSYCHOTHERAPY (11/21/16) INDIVIDUAL PSYCHOTHERAPY, SUPPORTIVE (11/21/16) MEDICATION MANAGEMENT (11/21/16) OP RED-INT FIX TIB/FIBUL (12/13/14) Family History: States: No Known Family Hx - Social History Hx Tobacco Use: No Hx Alcohol Use: No Hx Substance Use: No - Immunization History Hx Tetanus Toxoid Vaccination: No Hx Influenza Vaccination: No Hx Pneumococcal Vaccination: No Review Of Systems Except As Marked, All Systems Reviewed And Found Negative. Constitutional: Negative for: Fever, Chills ENT: Positive for: Nose Congestion Cardiovascular: Negative for: Chest Pain Respiratory: Positive for: Cough (mild). Negative for: Shortness of Breath Gastrointestinal: Negative for: Nausea, Vomiting, Abdominal Pain Skin: Negative for: Rash Neurological: Positive for: Headache Physical Exam - Physical Exam Appears: Non-toxic, No Acute Distress, Other (Texting on phone) Skin: Warm, Dry Head: Other (maxillary tenderness) Eye(s): bilateral: Normal Inspection Oral Mucosa: Moist Throat: Normal, No Erythema, No Exudate Cardiovascular: Rhythm Regular, No Murmur Respiratory: Normal Breath Sounds, No Rales, No Rhonchi, No Wheezing Extremity: Bilateral: Atraumatic, Normal Color And Temperature, Normal ROM Neurological/Psych: Oriented x3, Normal Speech ED Course And Treatment O2 Sat by Pulse Oximetry: 100 (RA) Pulse Ox Interpretation: Normal Medical Decision Making Medical Decision Making: Plan: --Tylenol PO --Urine Test pt neuro intact. well appearing in nad. texting on phone i n nad. stable for dc Disposition - Disposition Disposition: HOME/ ROUTINE Disposition Time: 15:00 Condition: STABLE Additional Instructions: return to er with worsening symptoms or concerns Prescriptions: Amoxicillin/Clavulanate [Augmentin 875 MG-125 MG] 1 tab PO BID #20 tab Instructions: Sinusitis, Adult (DC), Sinus Headache (DC) Forms: Balakam (Andorran) - Clinical Impression Clinical Impression: Sinusitis - Scribe Statement The provider has reviewed the documentation as recorded by the Zita Ma Provider Attestation: All medical record entries made by the Caritoibmatt were at my direction and personally dictated by me. I have reviewed the chart and agree that the record accurately reflects my personal performance of the history, physical exam, medical decision making, and the department course for this patient. I have also personally directed, reviewed, and agree with the discharge instructions and disposition.
[2018-10-13 15:46] VITALS: RESP 18
== END 2018-10-13 15:41 | disposition home or self-care (01) ==
LOC: C.ER 14:46
DX: J32.9 Chronic sinusitis, unspecified (principal)